=== PATIENT | male | born 1945 ===

== ENCOUNTER 2018-05-31 12:38 | Emergency (ER) | payer MEDICARE, OTHER ==
[2018-05-31 13:03] VITALS: PULSE 83; RESP 16; TEMP 97.6; O2SAT 98
[2018-05-31] MEDS ORDERED: Bacitracin 500 Units/gm Oint Foilpak UD ONE (13:47)
--- NOTE | 2018-05-31 16:11 | CT ---
Date of service: 05/31/2018 PROCEDURE: CT HEAD WITHOUT CONTRAST. HISTORY: R temp/occ lac x 2 days, h/o MR COMPARISON: CT head without contrast performed 06/05/12 TECHNIQUE: Axial computed tomography images were obtained through the head/brain without intravenous contrast. Radiation dose: Total exam DLP = 1405.37 mGy-cm. This CT exam was performed using one or more of the following dose reduction techniques: Automated exposure control, adjustment of the mA and/or kV according to patient size, and/or use of iterative reconstruction technique. FINDINGS: Examination is markedly limited due to patient positioning and motion. HEMORRHAGE: No intracranial hemorrhage. BRAIN: Diffuse atrophy with prominence of the ventricles and sulci noted. Dilated keit-[id number]-right subdural spaces possibly hygromas. No mass effect or edema. Intracranial atherosclerosis. Scattered periventricular and subcortical white matter hypodensities, which are nonspecific, but often seen with chronic microvascular ischemic disease. Please note that MRI with diffusion imaging is more sensitive in the detection of acute ischemic event. VENTRICLES: No hydrocephalus. CALVARIUM: Unremarkable. PARANASAL SINUSES: Marked mucosal thickening of the ethmoid air cells. Maxillary antrum small in volume. Fluid level in the right maxillary sinus. MASTOID AIR CELLS: Unremarkable as visualized. No inflammatory changes. 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 IMPRESSION: Nonspecific white matter changes. Dilated gnlx-habottu-gydf-right subdural spaces, possibly posterior hygromas. Marked mucosal thickening of the ethmoid air cells. Maximum antrum appears small in volume bilaterally particularly on the right. Fluid levels evident within the right maxillary sinus which appears consistent with sinusitis. 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 Examination limited by patient motion and positioning. Additional findings as above.
--- NOTE | 2018-05-31 16:13 | C.PDOC ---
History Of Present Illness 72 year old male is brought to the ED by family after they found a laceration to his right temporo-occipital, suspected to have been sustained yesterday. Upon further questioning, patient reveals that he slipped and fell in bathtub yesterday and did not tell anyone. Patient denies LOC, nausea, vomiting, extremity numbness/weakness. Family denies any active bleeding. - HPI Time Seen by Provider: 05/31/18 13:36 Chief Complaint (Nursing): Trauma History Per: Patient, Family History/Exam Limitations: no limitations Onset/Duration Of Symptoms: Hrs Past Medical History Reviewed: Historical Data, Nursing Documentation, Vital Signs Vital Signs: Last Vital Signs Temp 97.6 F 05/31/18 12:47 Pulse 83 05/31/18 12:47 Resp 16 05/31/18 12:47 BP 124/77 05/31/18 12:47 Pulse Ox 98 05/31/18 12:47 - Medical History PMH: Alzheimer's Disease, Seizures Surgical History: No Surg Hx Family History: States: Unknown Family Hx - Social History Hx Alcohol Use: No Hx Substance Use: No - Immunization History Hx Tetanus Toxoid Vaccination: No Hx Influenza Vaccination: Yes Hx Pneumococcal Vaccination: Yes Review Of Systems Gastrointestinal: Negative for: Nausea, Vomiting Skin: Positive for: Other (laceration to right temporo-occipital region ) Neurological: Negative for: Weakness, Numbness, Other (LOC) Physical Exam - Physical Exam Appears: Non-toxic, No Acute Distress, Other (chronically mentally ill appearing ) Skin: Normal Color, Warm, Dry Head: Laceration (6cm laceration to right temporo-occipital region. non active bleeding, no fluctuance, no depressed skull fracture ) Eye(s): bilateral: Normal Inspection, PERRL, EOMI Ear(s): Bilateral: Other (no hemotympanum ) Oral Mucosa: Moist Neck: Normal ROM, No Midline Cervical Tenderness, No Paracervical Tenderness, Supple Chest: Symmetrical, No Deformity, No Tenderness Cardiovascular: Rhythm Regular, No Murmur Respiratory: Normal Breath Sounds, No Rales, No Rhonchi, No Wheezing Extremity: Normal ROM, Capillary Refill (less than 2 seconds ) Neurological/Psych: Other (awake, alert and acting appropriate to baseline (as per family)) ED Course And Treatment O2 Sat by Pulse Oximetry: 98 (on RA ) Pulse Ox Interpretation: Normal Progress Note: CT Head ordered and reviewed. Medical Decision Making Medical Decision Making: subacute R temporo-occipital laceration, superficial x 2 days cannot close w sutures due to > 24 hours and uninfected, and superficial not requiring suture closure. chronic brain findings. Disposition Doctor Will See Patient In The: Office Counseled Patient/Family Regarding: Studies Performed, Diagnosis - Disposition Referrals: [facility] [Outside] [facility] [Outside] [facility] [Outside] [facility] Disposition: HOME/ ROUTINE Disposition Time: 16:13 Condition: GOOD Additional Instructions: continue to wash with soap and water daily Bacitracin ointment daily to the wound Return for any signs of infection no antibiotics prescribed head CT negative. Instructions: Wound Care Forms: [facility] ([place]) - Clinical Impression Clinical Impression: Laceration of scalp - Scribe Statement The provider has reviewed the documentation as recorded by the Scribe (Trinity Bran) Provider Attestation: All medical record entries made by the Scribe were at my direction and personally dictated by me. I have reviewed the chart and agree that the record accurately reflects my personal performance of the history, physical exam, medical decision making, and the department course for this patient. I have also personally directed, reviewed, and agree with the discharge instructions and disposition.
[2018-05-31 16:41] VITALS: BP 116/75
== END 2018-05-31 16:41 | disposition home or self-care (01) ==
LOC: C.ER 12:38
DX: S01.01XA Laceration without foreign body of scalp, initial encounter (principal); W18.2XXA Fall in (into) shower or empty bathtub, initial encounter; Y93.E1 Activity, personal bathing and showering